=== PATIENT | male | born 1940 | race Caucasian/White ===

== ENCOUNTER 2019-12-10 10:49 | Observation (INO) | payer MEDICARE, BC ==
--- NOTE | 2019-12-10 10:40 | EDM.PDOC ---
ED HPI GENERAL MEDICAL PROBLEM - General Chief Complaint: Back Pain or Injury Stated Complaint: ER Time Seen by Provider: 12/10/19 10:49 Source of Information: Reports: Patient ([id number]), EMS - History of Present Illness INITIAL COMMENTS - FREE TEXT/NARRATIVE: Cherelle is a 79 y/o male who is brought to the ER by EMS for low back pain/spasms. He was in the bathroom cleaning a toilet and was bent over when he started to have a severe back spasm. He could not get up and was in excruciating pain. He has a history of a compression fx to L4 in 1982 and has had ongoing back pain for which he sees a local chiropractor. He was given Dilaudid 1mg, Fentanyl 50mg IV, and Valium gm IVP enroute by paramedics for pain. He rates his pain 7-8/10 on arrival to the ER. Lower Back Pain Score (Numeric/FACES): 10 - Related Data Allergies Allergy/AdvReac Type Severity Reaction Status Date / Time No Known Allergies Allergy Verified 04/25/15 09:23 Home Meds: Home Meds Finasteride [Proscar] 5 mg PO BEDTIME #30 tablet 10/05/14 [Rx] Allopurinol [Zyloprim] 100 mg PO DAILY 12/10/19 [History] Past Medical History - Past Health History Medical/Surgical History: Denies Medical/Surgical History Genitourinary History: Reports: Other (See Below) Other Genitourinary History: urinary retention, Musculoskeletal History: Reports: Other (See Below) (Compression Fx L4) - Past Surgical History Male Surgical History: Reports: TURP-Transurethral Resection of Prostate Review of Systems - Review of Systems Review Of Systems: See Below Constitutional: Reports: No Symptoms Eyes: Reports: No Symptoms Ears: Reports: No Symptoms Nose: Reports: No Symptoms Mouth/Throat: Reports: No Symptoms Respiratory: Reports: No Symptoms Cardiovascular: Reports: No Symptoms GI/Abdominal: Reports: No Symptoms Genitourinary: Reports: No Symptoms Musculoskeletal: Reports: Back Pain Skin: Reports: No Symptoms Neurological: Reports: No Symptoms Psychiatric: Reports: No Symptoms ED EXAM, GENERAL - Physical Exam Exam: See Below General Appearance: Alert, WD/WN, Other (Adul male, obviously in pain and cries out with movement) Eye Exam: Bilateral Eye: Normal Inspection Ears: Hearing Grossly Normal Nose: Normal Inspection Throat/Mouth: Normal Gums, Normal Oropharynx, Normal Voice Head: Atraumatic, Normocephalic Neck: Normal Inspection Respiratory/Chest: No Respiratory Distress, Lungs Clear, Chest Non-Tender Cardiovascular: Regular Rate, Rhythm GI/Abdominal: Normal Bowel Sounds, Soft, Non-Tender, No Mass (Male) Exam: Deferred Rectal (Males) Exam: Deferred Back Exam: Muscle Spasm, Other (Patient unable to move on side so [employer] could assess spine, pt had severe spasms when attempting to move) Extremities: Normal Inspection, Other (Edema, 1+ non-pitting R>L) Neurological: Alert, Oriented, CN II-XII Intact, Normal Cognition, Normal Reflexes Psychiatric: Normal Affect, Normal Mood Skin Exam: Warm, Dry, Intact, Normal Color Lymphatic: No Adenopathy Course - Vital Signs Text/Narrative:: 1032 The patient was seen by the [employer]. Xrays were ordered. He was given Dilaudid 1mg IVP and SoluMedrol 125mg IVP. 1050 Patient in such severe pain when attempting to move, will obtain CT instead of plain films. 1210 CT results reviewed, note lumbar spondylosis with foraminal stenosis L3-4 through L5-S1, enlarged prostate. Patient reports the pain as tolerable at this time. Will plan to send patient home with muscle relaxers, pain meds, and steroids, then have him follow up with his PCP Dr Marge Crabtree for PT referral and Ortho/Neuro Surgeon referral if needed. 1250 Patient attempted to get up with RN assistance and could not tolerate. Will admit to Observation for pain management and him seen by PT. See Orders. Last Recorded V/S: Last Vital Signs Temp 36.2 C 12/10/19 10:30 Pulse 55 L 12/10/19 10:30 Resp 20 12/10/19 10:30 BP 155/90 H 12/10/19 10:30 Pulse Ox 98 12/10/19 10:30 - Orders/Labs/Meds Orders: Active Orders 24 hr Category Date Time Status Patient Status [ADT] Routine ADT 12/10/19 12:56 Active Oxygen Therapy [RC] PRN Care 12/10/19 12:56 Active Up With Assistance [RC] ASDIRECTED Care 12/10/19 12:56 Active VTE/DVT Education [RC] PER UNIT ROUTINE Care 12/10/19 12:56 Active Vital Signs [RC] Q4H Care 12/10/19 12:56 Active PT Evaluation and Treatment [CONS] Routine Cons 12/10/19 12:56 Active Regular Diet [DIET] Diet 12/10/19 Dinner Ordered Acetaminophen [TylenoL] Med 12/10/19 12:56 Active 650 mg PO Q4H PRN Acetaminophen/oxyCODONE [Percocet 325-5 MG] Med 12/10/19 12:56 Active 2 tab PO Q4H PRN Docusate Sodium [Colace] Med 12/10/19 12:56 Active 100 mg PO BID PRN HYDROmorphone [Dilaudid] Med 12/10/19 12:56 Active 0.5 mg IVPUSH Q2H PRN Ondansetron [Zofran] Med 12/10/19 12:56 Active 4 mg IV Q4H PRN Resuscitation Status Routine Resus Stat 12/10/19 12:56 Ordered Medication Orders Acetaminophen (Tylenol) 650 mg PO Q4H PRN PRN Reason: Pain (Mild 1-3)/fever Allopurinol (Zyloprim) 100 mg PO DAILY AXEL Docusate Sodium (Colace) 100 mg PO BID PRN PRN Reason: Constipation Finasteride (Proscar) 5 mg PO BEDTIME AXEL Hydromorphone HCl (Dilaudid) 0.5 mg IVPUSH Q2H PRN PRN Reason: Pain (severe 7-10) Ondansetron HCl (Zofran) 4 mg IV Q4H PRN PRN Reason: Nausea/Vomiting Oxycodone/Acetaminophen (Percocet 325-5 Mg) 2 tab PO Q4H PRN PRN Reason: Pain (moderate 4-6) Meds: Medications Generic Name Dose Route Start Last Admin Trade Name Freq PRN Reason Stop Dose Admin Acetaminophen 650 mg 12/10/19 12:56 Tylenol PO Q4H PRN Pain (Mild 1-3)/fever Allopurinol 100 mg 12/11/19 08:00 Zyloprim PO DAILY AXEL Docusate Sodium 100 mg 12/10/19 12:56 Colace PO BID PRN Constipation Finasteride 5 mg 12/10/19 20:00 Proscar PO BEDTIME AXEL Hydromorphone HCl 0.5 mg 12/10/19 12:56 Dilaudid IVPUSH Q2H PRN Pain (severe 7-10) Ondansetron HCl 4 mg 12/10/19 12:56 Zofran IV Q4H PRN Nausea/Vomiting Oxycodone/Acetaminophen 2 tab 12/10/19 12:56 Percocet 325-5 Mg PO Q4H PRN Pain (moderate 4-6) Discontinued Medications Generic Name Dose Route Start Last Admin Trade Name Joãoq PRN Reason Stop Dose Admin Hydromorphone HCl 1 mg 12/10/19 10:33 12/10/19 10:49 Dilaudid IVPUSH 12/10/19 10:34 1 mg ONETIME ONE Administration Methylprednisolone Sodium Succinate 125 mg 12/10/19 10:33 12/10/19 10:45 Solu-Medrol IVPUSH 12/10/19 10:34 125 mg ONETIME ONE Administration - Radiology Interpretation Free Text/Narrative:: CT Lumbar Spine WO=Lumbar Spondylosis with stenosis L3-4 through L5-S1, incidentally noted an enlarged prostate Departure - Departure Time of Disposition: 12:30 Disposition: Refer to Observation Condition: Good Clinical Impression: Lumbar spondylosis, Foraminal stenosis of lumbosacral region, Acute pain - Discharge Information *PRESCRIPTION DRUG MONITORING PROGRAM REVIEWED*: No *COPY OF PRESCRIPTION DRUG MONITORING REPORT IN PATIENT VIVIANA: No Sepsis Event Note (ED) - Focused Exam Vital Signs: Vital Signs Temp Pulse Resp BP Pulse Ox 12/10/19 10:30 36.2 C 55 L 20 155/90 H 98 - Problem List Review Problem List Initiated/Reviewed/Updated: Yes - My Orders Last 24 Hours: My Active Orders 12/10/19 12:56 Patient Status [ADT] Routine Oxygen Therapy [RC] PRN Up With Assistance [RC] ASDIRECTED VTE/DVT Education [RC] PER UNIT ROUTINE Vital Signs [RC] Q4H PT Evaluation and Treatment [CONS] Routine Acetaminophen [TylenoL] 650 mg PO Q4H PRN Acetaminophen/oxyCODONE [Percocet 325-5 MG] 2 tab PO Q4H PRN Docusate Sodium [Colace] 100 mg PO BID PRN HYDROmorphone [Dilaudid] 0.5 mg IVPUSH Q2H PRN Ondansetron [Zofran] 4 mg IV Q4H PRN Resuscitation Status Routine 12/10/19 Dinner Regular Diet [DIET] - Assessment/Plan Last 24 Hours: My Active Orders 12/10/19 12:56 Patient Status [ADT] Routine Oxygen Therapy [RC] PRN Up With Assistance [RC] ASDIRECTED VTE/DVT Education [RC] PER UNIT ROUTINE Vital Signs [RC] Q4H PT Evaluation and Treatment [CONS] Routine Acetaminophen [TylenoL] 650 mg PO Q4H PRN Acetaminophen/oxyCODONE [Percocet 325-5 MG] 2 tab PO Q4H PRN Docusate Sodium [Colace] 100 mg PO BID PRN HYDROmorphone [Dilaudid] 0.5 mg IVPUSH Q2H PRN Ondansetron [Zofran] 4 mg IV Q4H PRN Resuscitation Status Routine 12/10/19 Dinner Regular Diet [DIET] Assessment:: 1)Acute Pain 2)Lumbar Spondylosis 3)Foraminal Stenosis Plan: -Admit to Observation for pain control and PT eval
[~2019-12-10 10:49] MED LIST: HYDROmorphone 1 MG/ML Syringe IVPUSH ONE; methylPREDNISolone Sodium Succinate 125 MG/2 ML SDV IVPUSH ONE
--- NOTE | 2019-12-10 12:00 | CT ---
[id number] CT/CT Lumbar Spine WO IV Exam: CT Lumbar Spine WO IV Indication:LOW BACK PAIN. Comparison: MRI from 2015. Discussion/Impression: No acute fracture or compression deformity. Spondylosis as follows: Degenerative disc disease at all levels in lumbar spine with intervertebral disc height loss. Intervertebral disc height loss is most prominent at L1-2, L2-3, and L5-S1. Findings are secondary to disc osteophyte complexes. Additionally there is facet joint arthropathy at all levels in lumbar spine ranging in severity from mild to moderate. Findings are most prominent at L3-4 through L5-S1. Findings result in partial foraminal stenosis at L3-4 through L5-S1, including at least moderate changes at these levels. No radiographic evidence of high-grade central canal stenosis. 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 Moderate bilateral femoroacetabular osteoarthritis. Diffuse bone demineralization throughout the spine and visualized portion of the pelvis. Incidentally noted is marked enlargement of the prostate gland. Impression: Lumbar spondylosis with partial bilateral bony foraminal stenosis L3-4 through L5-S1. Edison Lin MD 12/10/19 2714 Thank you for allowing us to participate in the care of your patient.
[2019-12-10] MEDS ORDERED: Acetaminophen 325 MG Tab PO PRN (12:56)
[2019-12-10] MEDS ORDERED: HYDROmorphone 0.5 MG/0.5 ML Syringe IVPUSH PRN (12:56)
[2019-12-10] MEDS ORDERED: Docusate Sodium 100 MG Cap PO PRN (12:56)
[2019-12-10] MEDS ORDERED: Ondansetron 4 MG/2 ML SDV IV PRN (12:56)
[2019-12-10] MEDS ORDERED: Finasteride 5 MG Tab PO SCH (20:00)
[2019-12-10] MEDS: Acetaminophen/oxyCODONE 325-5 MG Tab PO PRN (20:01)
[2019-12-11] MEDS: Acetaminophen/oxyCODONE 325-5 MG Tab PO PRN (08:00)
[2019-12-11] MEDS ORDERED: Finasteride 5 MG Tab PO SCH (08:00)
[2019-12-11] MEDS ORDERED: Allopurinol 100 MG Tab PO SCH (08:00)
--- NOTE | 2019-12-11 10:22 | PCM.PN ---
- General Info Date of Service: 12/11/19 Admission Dx/Problem (Free Text): 1)Acute Pain 2)Lumbar Spondylosis 3)Foraminal Stenosis Subjective Update: Cherelle is feeling much better. He in fact reported the pain improved a lot about 10 pm last night. He has not yet seen PT, but is willing. He is able to sit up on the edge of the edge of bed and can get up and walk with standby assist. He does feel ready to go home. Functional Status: Reports: Pain Controlled - Review of Systems General: Reports: No Symptoms HEENT: Reports: No Symptoms Pulmonary: Reports: No Symptoms Cardiovascular: Reports: No Symptoms Gastrointestinal: Reports: No Symptoms Genitourinary: Reports: No Symptoms Musculoskeletal: Reports: Back Pain Skin: Reports: No Symptoms Neurological: Reports: No Symptoms Psychiatric: Reports: No Symptoms - Patient Data Vitals - Most Recent: Last Vital Signs Temp 36.3 C 12/11/19 06:00 Pulse 57 L 12/11/19 06:00 Resp 17 12/11/19 06:00 BP 108/59 L 12/11/19 06:00 Pulse Ox 94 L 12/11/19 06:00 Weight - Most Recent: 108.862 kg I&O - Last 24 Hours: Intake & Output 12/10/19 12/11/19 12/11/19 22:59 06:59 14:59 Intake Total 120 100 Output Total 450 Balance -330 100 Med Orders - Current: Current Medications Acetaminophen (Tylenol) 650 mg PO Q4H PRN PRN Reason: Pain (Mild 1-3)/fever Allopurinol (Zyloprim) 100 mg PO DAILY [facility] Last Admin: 12/11/19 08:00 Dose: 100 mg Documented by: Docusate Sodium (Colace) 100 mg PO BID PRN PRN Reason: Constipation Finasteride (Proscar) 5 mg PO DAILY [facility] Last Admin: 12/11/19 08:00 Dose: 5 mg Documented by: Hydromorphone HCl (Dilaudid) 0.5 mg IVPUSH Q2H PRN PRN Reason: Pain (severe 7-10) Ondansetron HCl (Zofran) 4 mg IV Q4H PRN PRN Reason: Nausea/Vomiting Oxycodone/Acetaminophen (Percocet 325-5 Mg) 2 tab PO Q4H PRN PRN Reason: Pain (moderate 4-6) Last Admin: 12/11/19 08:00 Dose: 1 tab Documented by: Discontinued Medications Finasteride (Proscar) 5 mg PO BEDTIME AXEL Last Admin: 12/10/19 20:00 Dose: Not Given Documented by: Hydromorphone HCl (Dilaudid) 1 mg IVPUSH ONETIME ONE Stop: 12/10/19 10:34 Last Admin: 12/10/19 10:49 Dose: 1 mg Documented by: Methylprednisolone Sodium Succinate (Solu-Medrol) 125 mg IVPUSH ONETIME ONE Stop: 12/10/19 10:34 Last Admin: 12/10/19 10:45 Dose: 125 mg Documented by: - Exam General: Alert, Oriented (Elderly male, smiling and looks much better) HEENT: Mucous Membr. Moist/[place], Other (Grossly intact) Neck: Supple Lungs: Normal Respiratory Effort Cardiovascular: Regular Rate, Regular Rhythm GI/Abdominal Exam: Soft, Non-Tender (Male) Exam: Deferred Back Exam: Vertebral Tenderness (lower lumbar region) Extremities: Normal Inspection, Non-Tender, Normal Capillary Refill Skin: Warm, Dry, Intact Neurological: No New Focal Deficit Psy/Mental Status: Alert, Normal Affect, Normal Mood Sepsis Event Note - Evaluation Sepsis Screening Result: No Definite Risk - Focused Exam Vital Signs: Vital Signs Temp Pulse Resp BP Pulse Ox 12/11/19 06:00 36.3 C 57 L 17 108/59 L 94 L 12/11/19 02:00 36.4 C 57 L 18 115/59 L 95 - Problem List Review Problem List Initiated/Reviewed/Updated: Yes - My Orders Last 24 Hours: My Active Orders 12/10/19 12:56 Patient Status [ADT] Routine Oxygen Therapy [RC] .PRN Up With Assistance [RC] Vital Signs [RC] 06,10,14,18,22,02 PT Evaluation and Treatment [CONS] Routine Acetaminophen [TylenoL] 650 mg PO Q4H PRN Acetaminophen/oxyCODONE [Percocet 325-5 MG] 2 tab PO Q4H PRN Docusate Sodium [Colace] 100 mg PO BID PRN HYDROmorphone [Dilaudid] 0.5 mg IVPUSH Q2H PRN Ondansetron [Zofran] 4 mg IV Q4H PRN Resuscitation Status Routine 12/10/19 Dinner Regular Diet [DIET] 12/11/19 08:00 Finasteride [Proscar] 5 mg PO DAILY allopurinoL [Zyloprim] 100 mg PO DAILY - Assessment Assessment:: 1)Acute Pain 2)Lumbar Spondylosis 3)Foraminal Stenosis - Plan Plan:: -Will have patient seen by PT prior to him leaving the hospital -Will send home later with pain meds, muscle relaxers, and steroids -Follow up with Dr Marge Crabtree for further pain meds/referral as needed. Make an appt to be seen in the next week.
[2019-12-11 10:50] VITALS: BP 135/62; PULSE 65
== END 2019-12-11 12:30 | disposition home or self-care (01) ==
LOC: VM.ED 10:49 → VM.MS 13:08
PROVIDERS: ADMIT Nurse Practitioner Family; ATTEND Nurse Practitioner Family
DX: M47.816 Spondylosis without myelopathy or radiculopathy, lumbar region (principal); M48.07 Spinal stenosis, lumbosacral region
CPT/HCPCS: 72131; 97161-GP; A9270-GY; J1170; J2930

== ENCOUNTER 2020-08-26 17:46 | Emergency (ER) | payer MEDICARE, BC ==
[2020-08-26] MEDS ORDERED: Sodium Chloride 0.9% 10 ML Syringe FLUSH PRN (17:53)
[2020-08-26] MEDS ORDERED: HYDROmorphone 1 MG/ML Syringe IVPUSH ONE (17:54)
[2020-08-26] MEDS ORDERED: Ketorolac 15 MG/ML SDV IVPUSH ONE (18:01)
[2020-08-26] MEDS ORDERED: Dexamethasone 4 MG/ML SDV IVPUSH ONE (18:02)
[2020-08-26] MEDS ORDERED: Lactated Ringers 1,000 ML IV ONE (18:29)
[2020-08-26] MEDS ORDERED: Take Home: Cyclobenzaprine 10 MG Tab, 4 Tab Pack PO ONE (19:35)
[2020-08-26] MEDS ORDERED: Take Home: Acetaminophen/HYDROcodone 325-10 MG, 5 Tab Pack PO ONE (19:35)
[2020-08-26 20:10] VITALS: BP 165/75; PULSE 71
--- NOTE | 2020-08-28 03:03 | EDM.PDOC ---
ED HPI GENERAL MEDICAL PROBLEM - General Chief Complaint: Back Pain or Injury Stated Complaint: BACK SPAMS Time Seen by Provider: 08/26/20 17:50 Source of Information: Reports: Patient - History of Present Illness INITIAL COMMENTS - FREE TEXT/NARRATIVE: Pt. presents to ER with complaints of acute exacerbation of severe low back pain. Pt. has a history of chronic low back pain. Denies any radiculopathy. No saddle anesthesia. Pt. has had to come to ER numerous times in the past for chronic low back pain. Pt. was able to get into the back seat of a car and his son drove him in. On arrival to ER, pt. was extremely distressed, screaming at staff. Pt. denies any fever or chills. Denies any trauma to the area. Onset Date: 08/26/20 Location: Reports: Back Quality: Reports: Ache, Burning, Dull, Pressure, Sharp, Stabbing, Throbbing Severity: Severe Back Pain Score (Numeric/FACES): 9 - Related Data Allergies Allergy/AdvReac Type Severity Reaction Status Date / Time No Known Allergies Allergy Verified 04/25/15 09:23 Home Meds: Home Meds Finasteride [Proscar] 5 mg PO BEDTIME #30 tablet 10/05/14 [Rx] allopurinoL [Zyloprim] 100 mg PO DAILY 12/10/19 [History] Acetaminophen [Tylenol] 650 mg PO Q4H PRN tablet 12/11/19 [Rx] Acetaminophen/oxyCODONE [Percocet 325-5 MG] 1 - 2 tab PO Q4H PRN #30 tablet 12/11/19 [Rx] Cyclobenzaprine [Flexeril] 5 mg PO TID PRN #30 tab 12/11/19 [Rx] Docusate Sodium [Colace] 100 mg PO BID PRN #60 cap 12/11/19 [Rx] methylPREDNISolone [Medrol Dose Pack] 4 mg PO DAILY #21 dospk 12/11/19 [Rx] Past Medical History - Past Health History Medical/Surgical History: Denies Medical/Surgical History Genitourinary History: Reports: Other (See Below) Other Genitourinary History: urinary retention, Musculoskeletal History: Reports: Other (See Below) Other Musculoskeletal History: compression fracture lumbar spine 1982 - Past Surgical History GI Surgical History: Reports: Appendectomy, Cholecystectomy Male Surgical History: Reports: TURP-Transurethral Resection of Prostate Social & Family History - Tobacco Use Tobacco Use Status *Q: Never Tobacco User - Caffeine Use Caffeine Use: Reports: None ED ROS GENERAL - Review of Systems Review Of Systems: See Below Musculoskeletal: Reports: Back Pain Neurological: Reports: No Symptoms ED EXAM, GENERAL - Physical Exam Exam: See Below General Appearance: Alert, WD/WN, No Apparent Distress Back Exam: Normal Inspection, Decreased Range of Motion, Paraspinal Tenderness Course - Vital Signs Last Recorded V/S: Last Vital Signs Temp 36.6 C 08/26/20 19:10 Pulse 71 08/26/20 19:40 Resp 16 08/26/20 19:40 BP 165/75 H 08/26/20 19:40 Pulse Ox 98 08/26/20 19:40 - Orders/Labs/Meds Meds: Medications Discontinued Medications Generic Name Dose Route Start Last Admin Trade Name Freq PRN Reason Stop Dose Admin Hydrocodone Bitart/Acetaminophen 1 packet 08/26/20 19:35 08/26/20 19:43 Take Home: Acetaminophen/Hydrocodone 325-10 Mg, 5 Tab Pack PO 08/26/20 19:36 1 packet ONETIME ONE Administration Cyclobenzaprine HCl 1 packet 08/26/20 19:35 08/26/20 19:43 Take Home: Cyclobenzaprine 10 Mg Tab, 4 Tab Pack PO 08/26/20 19:36 1 packet ONETIME ONE Administration Dexamethasone 8 mg 08/26/20 18:02 08/26/20 19:22 Dexamethasone 4 Mg/Ml Sdv IVPUSH 08/26/20 18:03 8 mg ONETIME ONE Administration Diazepam 5 mg 08/26/20 17:56 08/26/20 19:27 Diazepam 10 Mg/2 Ml Syringe IVPUSH 08/26/20 17:57 5 mg STAT ONE Administration Hydromorphone HCl 1 mg 08/26/20 17:54 08/26/20 18:16 Hydromorphone 1 Mg/Ml Syringe IVPUSH 08/26/20 17:55 1 mg ONETIME ONE Administration Lactated Ringer's 1,000 mls @ 1,000 mls/hr 08/26/20 18:29 08/26/20 18:45 Ringers, Lactated IV 08/26/20 19:28 1,000 mls/hr ONETIME ONE Administration Ketorolac Tromethamine 15 mg 08/26/20 18:01 08/26/20 19:25 Ketorolac 15 Mg/Ml Sdv IVPUSH 08/26/20 18:02 15 mg ONETIME ONE Administration Sodium Chloride 10 ml 08/26/20 17:53 Sodium Chloride 0.9% 10 Ml Syringe FLUSH ASDIRECTED PRN Keep Vein Open Departure - Departure Time of Disposition: 19:48 Disposition: Home, Self-Care 01 Clinical Impression: Acute exacerbation of chronic low back pain - Discharge Information Instructions: Acetaminophen; Hydrocodone tablets or capsules, Cyclobenzaprine tablets, Acute Back Pain, Adult Referrals: Marge Crabtree DO [Primary Care Provider] - Forms: ED Department Discharge Additional Instructions: [place] 10/325mg 1 every 4-6 hours PRN pain Cyclobenzaprine 10mg 1 tab 3 times daily as needed for spasm Ibuprofen 200mg 2 tabs every 4 hours as needed for pain Follow-up in clinic in 7-10 days Drink plenty of fluids Sepsis Event Note (ED) - Evaluation Sepsis Screening Result: No Definite Risk - Assessment/Plan Plan: [place] 10/325mg 1 every 4-6 hours PRN pain Cyclobenzaprine 10mg 1 tab 3 times daily as needed for spasm Ibuprofen 200mg 2 tabs every 4 hours as needed for pain Follow-up in clinic in 7-10 days Drink plenty of fluids
== END 2020-08-26 19:48 | disposition home or self-care (01) ==
LOC: VM.ED 17:46
DX: G89.29 Other chronic pain (principal); M54.5 Low back pain
CPT/HCPCS: 96374; 96375; 99283; 99283-25; A9270-GY; J1100; J1170; J1885; J3360; J7120

== ENCOUNTER 2021-11-25 14:48 | Emergency (ER) | payer MEDICARE, BC ==
[2021-11-25] MEDS ORDERED: Sodium Chloride 0.9% 10 ML Syringe FLUSH PRN (14:49)
[2021-11-25] MEDS: Ketorolac 30 MG/ML SDV IVPUSH ONE (15:00)
[2021-11-25] MEDS: Sodium Chloride 0.9% 1,000 ML IV ONE (15:00)
[2021-11-25] MEDS: Dexamethasone 4 MG/ML SDV IVPUSH ONE (15:01)
[2021-11-25] MEDS: Cyclobenzaprine 10 MG Tab PO ONE (15:45)
[2021-11-25 17:03] VITALS: BP 139/74; PULSE 62
== END 2021-11-25 16:15 | disposition home or self-care (01) ==
LOC: VM.ED 14:48
DX: M54.42 Lumbago with sciatica, left side (principal); M54.41 Lumbago with sciatica, right side; M62.830 Muscle spasm of back
CPT/HCPCS: 96361; 96374; 96375; 99283-25; 99284; A9270-GY; J1100; J1885; J3360; J7030

== ENCOUNTER 2021-11-28 09:04 | Observation (INO) | payer MEDICARE, BC ==
[2021-11-28] MEDS ORDERED: Dexamethasone 4 MG/ML SDV IVPUSH ONE (09:23)
[2021-11-28] MEDS ORDERED: Ketorolac 15 MG/ML SDV IVPUSH ONE (09:25)
[2021-11-28] MEDS ORDERED: Acetaminophen 325 MG Tab PO PRN (11:59)
[2021-11-28] MEDS ORDERED: Cyclobenzaprine 10 MG Tab PO PRN (13:15)
[2021-11-28] MEDS: Acetaminophen/HYDROcodone 325-10 MG Tab PO PRN ×2 (13:19→20:10)
[2021-11-28] MEDS ORDERED: Finasteride 5 MG Tab PO SCH (21:00)
[2021-11-29] MEDS ORDERED: Allopurinol 100 MG Tab PO SCH (09:00)
[2021-11-29 10:16] VITALS: BP 146/67; PULSE 50
== END 2021-11-29 11:30 | disposition home or self-care (01) ==
LOC: VM.ED 09:04 → VM.MS 10:44
PROVIDERS: ADMIT Physician Assistant; ATTEND Physician Assistant
DX: G89.29 Other chronic pain (principal); M54.50 Low back pain, unspecified; Z79.899 Other long term (current) drug therapy; Z90.49 Acquired absence of other specified parts of digestive tract; Z98.890 Other specified postprocedural states
CPT/HCPCS: 96374; 96375; 99284-25; A9270-GY; J1100; J1885; J3360